=== PATIENT | male | born 1950 | race Caucasian/White ===

== ENCOUNTER → 2016-07-25 | Outpatient (CLI) | payer MEDICARE, OTHER ==
[~2016-07-25] MED LIST: ECOTRIN325 MG PO; FLOMAX0.4 M1 PO; KETOROLAC TROME10 ML OD; LISINOPRIL20 MG PO; PERCOCET 5-3251 TAB PO; PRED MILD5 ML OD
--- NOTE | ~2016-07-25 | CT57 ---
[facility] A Service of [facility] & [facility] RADIOLOGY TEXT RESULTS PATIENT: ALIN AROAR LOCATION: [facility] : 46 UNIT #: [id number] AGE: [address]: RAYNE GO SEX: M ORDER DR: [id number] [place] [id number] O MR#: [id number] Acc #: [id number] NAME: ALIN ARORA : 1950 SEX: M STUDY DATE/TIME: 07/25/2016 10:52 UNIT: [facility] ROOM: STUDY DESCRIPTION: CT Chest Wo Cont Attending Physician: Elysia Go Aprn Referring Physician: Elysia Go Aprn Ordering Physician: Carlo Glass M.D. Primary Care Physician: Carlo Glass M.D. MEDICAL IMAGING REPORT This report is preliminary unless electronic signature is present. EXAM CT of the chest without contrast, 07/25/2016. HISTORY Midsternal chest pain and cough x2 months. TECHNIQUE Axial CT images were obtained from the thoracic inlet through the dome of the diaphragm. No intravenous contrast material was administered. This CT exam was performed with one or more of the following radiation dose reduction techniques: automatic exposure control, adjustment of mA and/or kV according to patient size, and iterative reconstruction. FINDINGS Lungs are clear. The thyroid gland, trachea, and esophagus appear unremarkable. There is no pleural or pericardial effusion. Mediastinal lymph nodes do not appear pathologically enlarged. The patient's main pulmonary artery is enlarged; this finding can be seen in a setting of pulmonary arterial hypertension. However, it was also present on the prior study from 2008. There is some aneurysmal dilatation of the proximal descending thoracic aorta that measures up to about 3 cm in size. This is larger than on the prior exam when it measured about 2.8 cm. Distal descending aorta measures 2.7 cm. The patient is noted to have splenomegaly, with the spleen measuring up to 14.7 cm in AP dimensions. However, similar findings were present on the prior study from 2008. Liver appears unremarkable. The gallbladder is surgically absent. The pancreas is within normal limits. Patient does have a duodenal diverticulum. I do not see any acute abnormalities within the upper abdomen. Patient is status post right shoulder arthroplasty. There is a stable sclerotic lesion identified within the right fifth rib, unchanged since 2008 and thus benign. There is coarsening of the STS. 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 No aggressive osseous abnormalities are seen. IMPRESSION 1. No acute intrathoracic process identified. 2. Patient's main pulmonary artery is dilated; this can be seen in the setting of pulmonary arterial hypertension. Similar findings were present on the exam from April 2009. 3. 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 This is slightly larger than on prior study from 2008, when it measured about 2.8 cm. 4. Stable splenomegaly, when compared to the exam from 2008. 5. 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 Dictated by... Lola Griffith M.D. THIS IS AN ELECTRONICALLY VERIFIED REPORT Lola Griffith M.D. at 07/26/2016 1:33 PM AFF/js TD: 07/26/2016 10:59 JOB #: [id number] MEDICAL IMAGING REPORT
== END | disposition home or self-care (01) ==
LOC: SCT 10:36
DX: R05 Cough (principal); I71.2 Thoracic aortic aneurysm, without rupture; Z87.891 Personal history of nicotine dependence; R16.1 Splenomegaly, not elsewhere classified
CPT/HCPCS: 71250